=== PATIENT | female | born 1970 | race Caucasian/White ===

== ENCOUNTER 2017-12-03 08:19 | Outpatient (CLI) | payer OTHER | END 2017-12-03 08:20 | disposition home or self-care (01) | LOC: BICMAMMO 08:19 | PROVIDERS: ATTEND Student in an Organized Health Care Education/Training Program | DX: Z12.31 Encounter for screening mammogram for malignant neoplasm of breast (principal); Z80.3 Family history of malignant neoplasm of breast | CPT/HCPCS: 77063; 77067 ==

== ENCOUNTER 2017-12-10 09:45 | Outpatient (CLI) | payer OTHER | END 2017-12-10 09:46 | disposition home or self-care (01) | LOC: BICMAMMO 09:45 | PROVIDERS: ATTEND Student in an Organized Health Care Education/Training Program | DX: N63.20 Unspecified lump in the left breast, unspecified quadrant (principal); N64.89 Other specified disorders of breast; Z80.3 Family history of malignant neoplasm of breast | CPT/HCPCS: G0279 ==

== ENCOUNTER 2018-12-16 08:29 | Outpatient (CLI) | payer OTHER ==
--- NOTE | 2018-12-16 09:10 | MMO ---
Bilateral MAMMO Bilat Screen [facility]. CLINICAL HISTORY: Patient is 48 years old and is seen for screening. The patient has the following family history of breast cancer: sister, at age 44 and paternal aunt. The patient has no personal history of cancer. VIEWS: The views performed were: bilateral craniocaudal with tomosynthesis and bilateral mediolateral oblique with tomosynthesis. FILMS COMPARED: The present examination has been compared to prior imaging studies performed at [facility] on 12/27/2013, 12/03/2017 and 12/10/2017. MAMMOGRAM FINDINGS: The breasts are heterogeneously dense, which could obscure a lesion on mammography. There are no suspicious masses, suspicious calcifications, or new areas of architectural distortion. IMPRESSION: THERE IS NO MAMMOGRAPHIC EVIDENCE OF MALIGNANCY. A ROUTINE FOLLOW-UP MAMMOGRAM IN 1 YEAR IS RECOMMENDED. THE RESULTS OF THIS EXAM WERE SENT TO THE PATIENT. ACR BI-RADS Category 1 - Negative MAMMOGRAPHY NOTE: 1. A negative mammogram report should not delay a biopsy if a dominant of clinically suspicious mass is present. 2. Approximately 10% to 15% of breast cancers are not detected by mammography. 3. Adenosis and dense breasts may obscure an underlying neoplasm.
== END 2018-12-16 08:30 | disposition home or self-care (01) ==
LOC: BICMAMMO 08:29
PROVIDERS: ATTEND Student in an Organized Health Care Education/Training Program
DX: Z12.31 Encounter for screening mammogram for malignant neoplasm of breast (principal); Z80.3 Family history of malignant neoplasm of breast
CPT/HCPCS: 77063; 77067

== ENCOUNTER 2019-07-09 18:41 | Observation (INO) | payer OTHER ==
[~2019-07-09 18:41] MED LIST: Iopamidol-370 76% 500 ML 1 ML ONE
[2019-07-09] MEDS ORDERED: Lorazepam 2 MG/ML VIAL ONE (19:00)
[2019-07-09] MEDS ORDERED: Ondansetron PF 4 MG/2 ML Vial ONE (19:00)
[2019-07-09 19:20] LABS: Mean Corpuscular HGB CONC 34.1 g/dL (32.0-36.0); Mean Corpuscular Hemoglobin 31.2 pg (27.0-31.0); Mean Corpuscular Volume 91.3 fL (78.0-98.0); Mean Platelet Volume 6.7 fL (7.4-10.4); Platelet Count 285 thou/uL (130-400); RBC Distribution Width 11.1 % (11.5-14.5); Red Blood Cell (RBC) Count 4.18 mill/uL (4.20-5.40); White Blood Cell (WBC) Count 11.4 thou/uL (4.8-10.8)
[2019-07-09] MEDS ORDERED: Mag-Al 1200 mg/1200 mg/30 ML UDCUP ONE (19:25)
[2019-07-09] MEDS ORDERED: Pantoprazole 40 MG VIAL ONE (19:25)
[2019-07-09] MEDS ORDERED: Famotidine 20 MG TAB ONE (19:25)
[2019-07-09] MEDS ORDERED: Lidocaine Viscous Sol 2% 15 ml UD Cup ONE (19:25)
[2019-07-09 19:36] LABS: Band 12 % (5-11); Eosinophils 1 % (0-10); Lymphocytes 9 % (21-51); MDiff Complete? YES; Metamyelocyte 1 % (0-0); Monocytes 2 % (0-10); Neutrophil 75 % (42-75); Platelet Morphology Comment Appears Adequate; RBC Morphology Normal
[2019-07-09 19:40] LABS: Anion Gap 12 mmol/L (10-20); BUN (Urea Nitrogen) 13 mg/dL (7.0-18.7); Calc. Creatinine Clearance 0 mL/min (70-130); Calcium 9.3 mg/dL (7.8-10.44); Carbon Dioxide 24 mmol/L (22-29); Chloride 103 mmol/L (98-107); Estimated GFR-MDRD 83; Glucose 147 mg/dL (70-105); Potassium 4.1 mmol/L (3.5-5.1); Sodium 135 mmol/L (136-145)
[2019-07-09 19:41] LABS: ALT (SGPT) 57 U/L (8-55); AST (SGOT) 125 U/L (5-34); Albumin 4.3 g/dL (3.5-5.0); Alkaline Phosphatase 64 U/L (40-110); Bilirubin, Total 0.7 mg/dL (0.2-1.2); CK (CPK) 72 U/L (29-168); Globulin 3.1 g/dL (2.4-3.5); Lipase 16 U/L (8-78); Protein, Total 7.4 g/dL (6.0-8.3)
[2019-07-09 20:01] LABS: Bilirubin Negative (Negative); Blood, Urine Negative (Negative); Clarity Clear (Clear); Glucose, Urine (Dipstick) Normal (Negative); Leukocyte Negative Leu/uL (Negative); Nitrite Negative (Negative); Protein, Urine (Dipstick) Negative (Neg-Trace); Urobilinogen Normal mg/dL (Less than 2)
--- NOTE | 2019-07-09 20:20 | RAD ---
RADIOGRAPH CHEST 1 VIEW: DATE: 07/09/2019 HISTORY: 49-year-old female with chest pain FINDINGS: There is no airspace density, pulmonary edema, or pneumothorax. The lateral costophrenic angles are n ot effaced. Small focal pulmonary scar at the lingula near cardiac apex. IMPRESSION: No acute pulmonary findings.
--- NOTE | 2019-07-09 20:43 | CT ---
CT ABDOMEN WITH CONTRAST CT PELVIS WITH CONTRAST: DATE: 07/09/2019 HISTORY: 49-year-old female with chest pain, epigastric pain,, nausea, elevated liver function tests, and leuk ocytosis. TECHNIQUE: IV injection of iodinated contrast media: Administered Oral contrast media:Not administered FINDINGS: Stomach: Distended with large amount of gas and moderate amount of fluid. Liver: No focal solid mass. No abscess. Diffuse periportal edema. Spleen: No splenomegaly.. Pancreas: No mass or surrounding fat stranding.. Adrenals: No mass.. Kidneys: No hydronephrosis or enhancement abnormalities.. Ureters: No dilation. Bladder: No pathology identified. Abdominal aorta: No aneurysm. Small bowel: No dilation. Duodenum appears slightly squeezed as it passes between the SMA and aorta. Colon: No adjacent fat stranding. Appendix: Despite history of appendectomy, there is a short linear structure apparently arising from cecum which has the appearance of an appendix. No dilation or adjacent fat stranding.. Free air: None. Free fluid: None. Abscess: None IMPRESSION: 1. Gastric distention. Uncertain whether or not there is SMA syndrome causing this. 2. Diffuse periportal edema in the liver.
[2019-07-09] MEDS ORDERED: Fentanyl 100 MCG/2 ML VIAL ONE (21:01)
[2019-07-09] MEDS ORDERED: Senokot S 8.6-50 MG TAB PO PRN (21:34)
[2019-07-09] MEDS ORDERED: Ondansetron PF 4 MG/2 ML Vial IVP PRN (21:34)
[2019-07-09] MEDS ORDERED: Sodium Chloride 0.9% (PF) 10 ML VIAL FS PRN (22:47)
[2019-07-09] MEDS: Sodium Chloride 0.9% 1,000 ML IV SCH (23:05)
[2019-07-09 23:10] VITALS: BMI 31.6
[2019-07-10] MEDS: Fentanyl 100 MCG/2 ML VIAL SLOW IVP PRN ×2 (00:50→10:47)
--- NOTE | 2019-07-10 03:46 | HP ---
CHIEF COMPLAINT: Abdominal pain. HISTORY OF PRESENT ILLNESS: The patient is a 49-year-old female with no significant past medical history, who comes into the hospital with complaints of abdominal pain radiating to her epigastric area and then going to her left shoulder. The patient stated that she has a history of ulcers about 2 or 3 years ago. She states that today she ate some [place] food and she normally gets very significant amount of heartburn from green peppers. She thought that they were in her sauce today. Maybe after couple hours after she had her meal, she started having some epigastric pain going up and all the way to the left shoulder. Initially, she took Tums, which did not really help her pain and the pain intensified to the point that she came into the hospital for further evaluation. The patient denies any fevers, chills, nausea, vomiting, or diarrhea. PAST MEDICAL HISTORY: She has a history of duodenal ulcers in the past. PAST SURGICAL HISTORY: She has had a cholecystectomy. She has had appendectomy. She has had hernia repair. SOCIAL HISTORY: She denies any alcohol use, drug use, or smoking history. She is a full code. FAMILY HISTORY: Father had lung cancer. Mother had diabetes. Father had diabetes also. REVIEW OF SYSTEMS: All negative except for the ones mentioned above in the HPI. LABORATORY RESULTS: As of the following; WBCs of 11.4, hemoglobin of 13.0, hematocrit of 38.2, platelets of 285. Her bands are 12. Chemistry; sodium of 135, potassium of 4.1, BUN of 13, creatinine 0.75. AST is 125, ALT is 57. Her troponins are less than 0.01. Initially, her urine was normal. She actually had a CT of abdomen and pelvis, which indicated gastric distention. Uncertain whether or not this is a SMA syndrome causing this diffuse periportal edema in the liver. PHYSICAL EXAMINATION: VITAL SIGNS: Temperature 97.4, 82, 113/77, 18, and 97% on room air. GENERAL: She is awake, alert, and oriented x3, appears in mild distress. HEENT: Normocephalic, atraumatic. No lymphadenopathy noted. Pupils equal and reactive to light. CV: S1 and S2 present. No murmurs, rubs, or gallops. LUNGS: Clear to auscultation. No rhonchi or wheezes noted. ABDOMEN: Soft. Bowel sounds are present x2. Mild pain upon epigastric area and right upper quadrant. EXTREMITIES: No edema. Pedal pulses are present x2. NEUROVASCULAR: No focal deficits noted. SKIN: No cuts, lesions or bruises noted. ASSESSMENT AND PLAN: The patient is a very pleasant 49-year-old female, who presents to the hospital with complaints of abdominal pain. 1. Abdominal pain. This could be secondary to either possible duodenal ulcer versus possible SMA syndrome. However, it is very rare versus gastroparesis. The patient states that she has lost about 47 pounds in about less than a year by changing her diet. I am not sure this could contribute to possibly having the SMA syndrome. However, she does have a history of duodenal ulcers and she has been taking some ibuprofen on and off for some body aches. I will put on a PPI for now. Keep her n.p.o. after midnight. Start her on IV hydration and consult GI. She was scoped in 2015 by GI. I will also check JEFF and hepatitis panel given her periportal edema. I am not sure what to make out of that. She does have a strong family history of diabetes. I will also check her for hemoglobin A1c. The patient denies that she is diabetic. 2. Mild leukocytosis with bandemia. I will start her on some prophylactic antibiotics. However, I do not think there is any other infectious etiology at this moment. We will continue to monitor her. 3. Mild elevated LFTs. Again, I will check hepatitis panel. If worsens, may possible get right upper quadrant ultrasound since she has some periportal edema. I want to rule out any sort of thrombus, however, I will defer that to GI. 4. Deep venous thrombosis prophylaxis. We will put the patient on some SCDs. Job ID: [id number]
[2019-07-10] MEDS: cefTRIAXone\\ROCEPHIN 1 GM in Sodium Chloride 0.9% 100 ML IVPB SCH (04:05)
[2019-07-10 06:13] LABS: #Lymphocytes 1.1 thou/uL (1.20-3.40); #Monocytes 0.4 thou/uL (0.11-0.59); #Neutrophils 4.6 thou/uL (1.40-6.50); %Basophils 0.2 % (0.0-1.0); %Eosinophils 0.5 % (0.0-10.0); %Lymphocytes 17.4 % (21.0-51.0); Hemoglobin 11.2 g/dL (12.0-16.0); Mean Corpuscular Hemoglobin 31.1 pg (27.0-31.0); Mean Corpuscular Volume 91.3 fL (78.0-98.0); Mean Platelet Volume 6.7 fL (7.4-10.4); Platelet Count 251 thou/uL (130-400); RBC Distribution Width 10.9 % (11.5-14.5); Red Blood Cell (RBC) Count 3.62 mill/uL (4.20-5.40); White Blood Cell (WBC) Count 6.1 thou/uL (4.8-10.8)
[2019-07-10 06:14] LABS: Hemoglobin A1c 4.9 % (4.0-6.0)
[2019-07-10 06:30] LABS: ALT (SGPT) 158 U/L (8-55); AST (SGOT) 161 U/L (5-34); Albumin 3.7 g/dL (3.5-5.0); Alkaline Phosphatase 76 U/L (40-110); Anion Gap 6 mmol/L (10-20); BUN (Urea Nitrogen) 8 mg/dL (7.0-18.7); Bilirubin, Total 0.5 mg/dL (0.2-1.2); Calc. Creatinine Clearance 141 mL/min (70-130); Calcium 8.4 mg/dL (7.8-10.44); Carbon Dioxide 29 mmol/L (22-29); Chloride 106 mmol/L (98-107); Estimated GFR-MDRD Greater than 90; Globulin 2.4 g/dL (2.4-3.5); Glucose 96 mg/dL (70-105); Potassium 3.5 mmol/L (3.5-5.1); Protein, Total 6.1 g/dL (6.0-8.3); Sodium 137 mmol/L (136-145)
[2019-07-10 06:50] LABS: HBCM Index 0.11 S/CO (0-0.79); Hep A IgM AB Non-Reactive (NonReactive); Hep B Surf Ag Non-Reactive S/CO (NonReactive); Hep C IgG Ab Non-Reactive (NonReactive); Hepatitis B Core IgM Abs Non-Reactive (NonReactive)
[2019-07-10] MEDS: Enoxaparin Sodium 40 MG/0.4 ML SYRINGE SC SCH (07:57)
[2019-07-10] MEDS: Pantoprazole 40 MG VIAL IVP SCH ×2 (07:58→20:10)
[2019-07-10] MEDS: Sodium Chloride 0.9% 1,000 ML IV SCH ×3 (08:05→20:11)
[2019-07-10] MEDS: Loratadine 10 MG TAB PO SCH (08:08)
--- NOTE | 2019-07-10 12:58 | PDOC.HOSPP ---
- Subjective Encounter Date: 07/10/19 (f/u abd pain) Encounter Time: 12:57 Subjective: Pt reports pain has been increasing this morning - 1 dose of fentanyl today. Reports 4 episodes diarrhea yesterday, normal bm 2 days ago and no bm today. Denies any new sx today. - Objective Vital Signs & Weight: Vital Signs (12 hours) Temp Pulse Resp BP Pulse Ox 07/10/19 12:00 97.6 F 66 16 101/64 99 07/10/19 07:47 98.2 F 68 16 109/74 99 07/10/19 04:00 98 F 70 18 92/60 98 Weight Weight 179 lb I&O: 07/09/19 07/10/19 07/11/19 06:59 06:59 06:59 Intake Total 1600 Balance 1600 Result Diagrams: 07/10/19 05:44 07/10/19 05:44 Hospitalist ROS - Review of Systems Cardiovascular: denies: chest pain, palpitations, orthopnea, paroxysmal noc. dyspnea, edema, light headedness, other Genitourinary: denies: dysuria, frequency, incontinence, hematuria, retention, other - Medication Medications: Active Medications Generic Name Dose Route Start Last Admin Trade Name Freq PRN Reason Stop Dose Admin Enoxaparin Sodium 40 mg 07/10/19 09:00 07/10/19 07:57 Lovenox SC 40 mg 0900 LIZ Administration Fentanyl 25 mcg 07/09/19 22:59 07/10/19 10:47 Sublimaze SLOW IVP 25 mcg Q2H PRN Administration Fever/Mild Pain Sodium Chloride 1,000 mls @ 50 mls/hr 07/09/19 21:45 07/10/19 08:05 Normal Saline 0.9% IV 1,000 mls .Q20H LIZ Administration Ceftriaxone Sodium 1 gm/ 100 mls @ 200 mls/hr 07/10/19 04:00 07/10/19 04:05 Sodium Chloride IVPB 07/12/19 04:29 100 mls Q24HR LIZ Administration Loratadine 10 mg 07/10/19 09:00 07/10/19 08:08 Claritin PO Not Given DAILY LIZ Pantoprazole Sodium 40 mg 07/10/19 09:00 07/10/19 07:58 Protonix IVP 40 mg Q12HR LIZ Administration - Exam General Appearance: NAD Neck: supple Heart: RRR, no murmur Respiratory: CTAB, no wheezes, no rales, no ronchi Gastrointestinal: soft, non-tender, non-distended, normal bowel sounds Extremities: no cyanosis, no clubbing, no edema Musculoskeletal: normal tone Psychiatric: normal affect, A&O x 3 Hosp A/P (1) Abdominal pain Code(s): R10.9 - UNSPECIFIED ABDOMINAL PAIN Status: Acute Qualifiers: Abdominal location: right upper quadrant Qualified Code(s): R10.11 - Right upper quadrant pain (2) Leukocytosis Code(s): D72.829 - ELEVATED WHITE BLOOD CELL COUNT, UNSPECIFIED Status: Resolved (3) Elevated liver function tests Code(s): R94.5 - ABNORMAL RESULTS OF LIVER FUNCTION STUDIES Status: Acute - Plan Abd pain with abnormal CT and diarreha yesterday - GI consult placed - continue IV PPI bid - culture/stool studies including c diff - ultrasound abd ordered - continue managing pain Elevated lft's - neg hepatitis panel Leukocytosis resolved - has received 1 dose of rocephin without a focus of infection. Will continue for another 24 hours dvt prophy - ambulatory gi prophy - BID PPI code status full reviewed plan of care with patient/family, no questions or further needs at end of eval
--- NOTE | 2019-07-10 14:24 | ULT ---
Sonogram abdomen complete HISTORY: Abnormal CT scan. Periportal edema. Abdominal pain. COMPARISON: CT abdomen 07/09/2019. FINDINGS: Gallbladder is surgically absent. Common duct is 0.5 cm. Liver has normal appearance withou t focal mass or intrahepatic biliary dilatation. Normal echotexture without evidence of periportal edema on this exam. No free fluid. The spleen, kidneys, and visualized portions of abdominal aorta, IVC, and pancreas are unremarkable. IMPRESSION: Status post cholecystectomy. No evidence of biliary obstruction. Normal appearance of the liver. No abnormalities are demonstrated.
[2019-07-10] MEDS: Acetaminophen 325 MG TAB PO PRN (21:10)
--- NOTE | 2019-07-11 02:33 | CON ---
DATE OF CONSULTATION: 07/10/2019 CHIEF COMPLAINT: Abdominal pain. HISTORY OF PRESENT ILLNESS: Ms. Ramirez is a 49-year-old woman, who presented to the emergency room yesterday with acute onset of epigastric burning severe pain that started yesterday afternoon. She had four runny bowel movements that came along at the time of onset of the pain between 2:00 p.m. and 5:00 p.m. yesterday. She has had no bowel movement since then. She has had no nausea or vomiting. She has had no overt bleeding with stools. She has had no chest pain or shortness of breath. She has lost 47 pounds over the last year after she changed her diet after her had myocardial infarction last year. She has not had problems with heartburn regularly. She did try taking Tums for the pain yesterday that really did not help. She had recurrence of severity of the pain this morning and she did receive a dose of IV opioid for that. This afternoon, the pain has just been more of a mild constant ache more toward the right upper quadrant. PAST MEDICAL HISTORY: Peptic ulcer. Gastric biopsy in March of 2015, was negative for Helicobacter pylori. PAST SURGICAL HISTORY: Robotic cholecystectomy and subsequent incisional hernia repair, appendectomy. HABITS: No alcohol, tobacco, or drugs. FAMILY HISTORY: Negative for GI malignancy. ALLERGIES: MORPHINE. MEDICATIONS: Prior to admission, Xyzal. She does take ibuprofen a couple tablets 2 or 3 times per week. REVIEW OF SYSTEMS: Negative x10 systems reviewed, except as stated in the history of present illness. PHYSICAL EXAMINATION: VITAL SIGNS: Temperature 98.4, pulse 70, blood pressure 100/67. GENERAL: She is in no acute distress. Alert and oriented x3. HEENT: Eyes have no scleral icterus. Oropharynx is clear without lesions. No cervical or supraclavicular lymphadenopathy. LUNGS: Clear to auscultation bilaterally. HEART: Regular rate and rhythm without murmur. ABDOMEN: Soft, nontender, and nondistended. Bowel sounds are present. EXTREMITIES: No lower extremity edema. Cranial nerves are grossly intact. LABORATORY DATA: White blood cell count is 6.1 today, down from 11.4 yesterday. Hemoglobin is 11.2 today, down from 13.0 yesterday. Platelets 251. Creatinine 0.63, bilirubin 0.5, AST 161, ALT 158, alkaline phosphatase 76, albumin 3.7, TSH 0.8, lipase 16. Acute viral hepatitis panel is negative. She had ultrasound of the liver today that showed a [address] bile duct. CT scan of the abdomen and pelvis yesterday showed gastric distension. The passage of the duodenum between aorta and the SMA was noted, and question of SMA syndrome was raised. Periportal edema was noted around the liver. IMPRESSION: 1. Epigastric severe abdominal pain. She has a history of peptic ulcer and we will need to rule this out. She was negative for Helicobacter pylori by biopsy in 2015. She could have acute viral gastritis associated with gastric distention and the diarrhea that occurred with onset of her pain. She could have SMA syndrome given the 47 pounds weight loss of the last year. 2. Abnormal liver function test. Her acute viral hepatitis panel is negative. She did have some periportal edema noted in the liver. We will follow the trend of her LFTs. RECOMMENDATIONS: 1. EGD tomorrow. We will actually plan for enteroscopy such that we can reach the more distal duodenum to evaluate for obvious SMA syndrome. 2. Recheck trend of her liver tests. 3. Proton pump inhibitor. 4. She did have an elevated white blood cell count on admission and was started on ceftriaxone. Her urine culture was positive for E coli. Job ID: [id number]
[2019-07-11] MEDS: cefTRIAXone\\ROCEPHIN 1 GM in Sodium Chloride 0.9% 100 ML IVPB SCH (03:27)
[2019-07-11 05:55] LABS: #Eosinphils 0.1 thou/uL (0.0-0.7); #Lymphocytes 1.6 thou/uL (1.20-3.40); #Monocytes 0.3 thou/uL (0.11-0.59); #Neutrophils 1.6 thou/uL (1.40-6.50); %Basophils 0.8 % (0.0-1.0); %Eosinophils 2.2 % (0.0-10.0); %Lymphocytes 44.7 % (21.0-51.0); %Monocytes 6.8 % (0.0-10.0); %Neutrophils 45.4 % (42.0-75.0); Hemoglobin 11.3 g/dL (12.0-16.0); Mean Corpuscular HGB CONC 33.3 g/dL (32.0-36.0); Mean Corpuscular Hemoglobin 30.5 pg (27.0-31.0); Mean Corpuscular Volume 91.7 fL (78.0-98.0); Mean Platelet Volume 6.3 fL (7.4-10.4); Platelet Count 246 thou/uL (130-400); Red Blood Cell (RBC) Count 3.69 mill/uL (4.20-5.40); White Blood Cell (WBC) Count 3.6 thou/uL (4.8-10.8)
[2019-07-11 06:15] LABS: ALT (SGPT) 99 U/L (8-55); AST (SGOT) 57 U/L (5-34); Albumin 3.5 g/dL (3.5-5.0); Alkaline Phosphatase 66 U/L (40-110); Anion Gap 9 mmol/L (10-20); BUN (Urea Nitrogen) 8 mg/dL (7.0-18.7); Bilirubin, Total 0.4 mg/dL (0.2-1.2); Calc. Creatinine Clearance 131 mL/min (70-130); Calcium 8.2 mg/dL (7.8-10.44); Carbon Dioxide 27 mmol/L (22-29); Chloride 107 mmol/L (98-107); Estimated GFR-MDRD Greater than 90; Globulin 2.6 g/dL (2.4-3.5); Glucose 89 mg/dL (70-105); Potassium 3.7 mmol/L (3.5-5.1); Protein, Total 6.1 g/dL (6.0-8.3); Sodium 139 mmol/L (136-145)
[2019-07-11] MEDS: Loratadine 10 MG TAB PO SCH (06:52)
[2019-07-11] MEDS: Enoxaparin Sodium 40 MG/0.4 ML SYRINGE SC SCH (07:29)
[2019-07-11 07:36] VITALS: BP 99/63; TEMP 97.5
[2019-07-11] MEDS: Pantoprazole 40 MG VIAL IVP SCH (08:16)
[2019-07-11] MEDS: Sodium Chloride 0.9% 1,000 ML IV SCH (08:19)
[2019-07-11] MEDS ORDERED: PROPOFOL 200 MG/20 ML VIAL ONE (12:00)
[2019-07-11] MEDS ORDERED: Lidocaine 1% PF 5 ML VIAL ONE (12:00)
[2019-07-11] MEDS: Acetaminophen 325 MG TAB PO PRN (13:32)
--- NOTE | 2019-07-12 11:41 | DIS ---
DATE OF ADMISSION: 07/09/2019 DATE OF DISCHARGE: 07/11/2019 CONSULTANTS: GI, Dr. Dolan and Dr. Vital. PROCEDURES PERFORMED: EGD performed today and unremarkable. MEDICATIONS: Reconciled at discharge. New medication: 1. Zofran 4 mg ODT q.6 hours p.r.n. nausea, vomiting; prescription for 20 tablets, no refills. 2. Tylenol 650 mg every 6 hours as needed for pain. Medications to continue is Xyzal 5 mg daily as needed for allergies. FINAL DIAGNOSES: 1. Abdominal pain, likely acute viral gastroenteritis. 2. Elevated liver function tests. 3. Leukocytosis, resolved. 4. Obesity. HISTORY OF PRESENT ILLNESS: Ms. Ramirez is a 49-year-old female who presented to the emergency room with severe abdominal pain in the epigastric area that radiated to the left shoulder. She has a history of ulcers, the pain did not respond to [id number] medications. She also complains of 4 episodes of diarrhea prior to arrival. HOSPITAL COURSE: The patient was kept n.p.o., IV fluid hydration, pain managed until evaluated by Gastroenterology. She was started on a clear liquid diet yesterday and kept n.p.o. today for EGD. The EGD was unremarkable, negative evaluation for SMA syndrome, which was one of the possibilities on CT scan at admission. The patient did have some nausea after eating post procedure, and some minor pain. This was reviewed with Dr. Vital who feels that she can be discharged to home. We will manage the nausea, bland diet that is easy to digest today. Discussed pain medication at home and patient declines any prescriptions. She will take Tylenol as needed. It is recommended she follow up with her primary care provider within a week to review this hospitalization and address any other needs. The patient also will need a followup liver function test in about a month as the LFTs are elevated. The patient overall doing well, improved compared to admission, and she does meet criteria for discharge to home. The patient with an elevated white blood cell count on admission of 11.4. She was covered empirically with Rocephin, and her white blood cell count the next day was 6.1 and today is 3.6. She has not demonstrated any focal signs of infection to warrant continuing antibiotic therapy and this was discontinued. The patient has also not had any further diarrhea. Stool studies were ordered, however, not collected. PHYSICAL EXAMINATION: VITAL SIGNS: Temp 97.5, pulse 61, respirations 16, sats 98% on room air, blood pressure 99/63. GENERAL: Awake, alert, responsive, in no apparent distress. LUNGS: Clear to auscultation bilateral. HEART: Normal S1, S2. Regular rate and rhythm. No significant murmur. ABDOMEN: Soft with present bowel sounds. Nontender, nondistended. EXTREMITIES: No clubbing, cyanosis, or edema. PITTS FINDINGS AND TEST RESULTS: CBC on admission; 11.4, 13, 38.2, 285, and on day of discharge, 3.6, 11.3, 33.9, 246. Renal panel today; 139, 3.7, 107, 27, 8, 0.68, 89. T bilirubin 0.4, AST 57, ALT 99, alkaline phosphatase 66, total protein 6.1, albumin 3.5. TSH 0.866. Peak liver function tests, AST 161, ALT 158 yesterday. Urinalysis negative. Hepatitis panel negative. Pending labs are JEFF and Giardia antibody. Abdominal ultrasound, negative for biliary obstruction, normal appearing liver and status post cholecystectomy. Abdomen and pelvis CT performed on July 09 shows gastric distention, uncertain whether or not there is an SMA syndrome causing this, and diffuse periportal edema in the liver. Chest x-ray, July 09, no acute pulmonary findings. DIET: Diet is bland today and then as tolerated. ACTIVITY: As tolerated. The patient does her own housekeeping business and I advised her to go slow and be willing to either decrease her workload tomorrow if she is having any symptoms that warrant resting. FOLLOWUP: 1. Follow up with Dr. Mcnulty within a week to review this hospitalization, repeat the liver function tests in about a month and address any other health needs. 2. Follow up with Dr. Vital or Dr. Dolan as needed. Reviewed with patient and her this hospitalization, the followup, including the repeat LFTs that are needed, and to seek care precautions. No questions or further needs at the end of evaluation. 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 Job ID: [id number] MTDD
--- NOTE | 2019-07-13 14:32 | OP ---
DATE OF PROCEDURE: 07/11/2019 PROCEDURE PERFORMED: Esophagogastroduodenoscopy (diagnostic). INDICATIONS FOR PROCEDURE: Abnormal GI imaging, showing possible SMA syndrome; abdominal pain; nausea and vomiting. DESCRIPTION OF PROCEDURE: After the risks and benefits of the procedure were explained to the patient including risks of bleeding, infection, perforation, reactions to anesthesia, aspiration, and/or pain, informed consent was obtained. The patient was then taken to the endoscopy suite and placed in the left lateral decubitus position. Once in proper position, deep sedation was administered via propofol and anesthesia support. Once adequate sedation was achieved, the standard gastroscope was introduced into the mouth with intubation of the esophagus, stomach, and the proximal small intestines with the findings listed below. The patient tolerated the procedure well with no immediate perioperative complications. Upon conclusion of the procedure, all equipment was removed from the patient and she was transferred to PACU in satisfactory condition. FINDINGS: Esophagus: Normal-appearing mucosa was seen in the proximal, mid, and distal esophagus. There was no evidence of erosions, ulcerations, mass, lesions, or active/recent bleeding. Stomach: Normal-appearing mucosa was seen in the gastric cardia, fundus, body, greater curvature, antrum, and incisura. There was no evidence of erosions, ulcerations, mass, lesions, or active/recent bleeding. Duodenum: Normal-appearing mucosa was seen in both the duodenal bulb and second portion of the duodenum. There was no evidence of luminal narrowing or stricture formation in the second portion of the duodenum to indicate possible SMA syndrome. The gastroscope was advanced as far as I was able with reaching the third portion of the duodenum, and again no evidence of luminal narrowing or stricture was seen. There was also no evidence of erosions, ulcerations, mass, lesions, or active/recent bleeding. IMPRESSION: 1. Normal upper endoscopy. 2. No endoscopic evidence of superior mesenteric artery syndrome. RECOMMENDATIONS: 1. Would continue aggressive antiemetic support in light of the patient's abdominal pain, nausea, and vomiting. 2. Pain control per primary team. 3. Advance diet as tolerated. 4. Given the relatively benign findings on examination today, the patient could potentially be discharged to home with followup in the outpatient clinic once stable. We will sign off at this time. Please call with any questions. Job ID: [id number]
[2019-07-13 14:34] LABS: ANA Symphony (Qualitative) Negative (Negative); ANA Symphony (Quantitative) 0.1 Ratio (< 0.7 Negative); dsDNA IgG Antibody 0.6 IU/mL (<10 Negative)
== END 2019-07-11 15:11 | disposition home or self-care (01) ==
LOC: ERS 18:41 → T4-A 22:42
PROVIDERS: ADMIT Internal Medicine; ATTEND Internal Medicine
PROC: 0DJ08ZZ Inspection of Upper Intestinal Tract, Via Natural or Artificial Opening Endoscopic (ICD-10-PCS; principal; 2019-07-11)
DX: R10.13 Epigastric pain (principal); R11.2 Nausea with vomiting, unspecified; R94.5 Abnormal results of liver function studies; D72.825 Bandemia; E66.9 Obesity, unspecified; Z68.31 Body mass index [BMI] 31.0-31.9, adult; Z79.899 Other long term (current) drug therapy; Z88.5 Allergy status to narcotic agent; Z87.11 Personal history of peptic ulcer disease; Z87.19 Personal history of other diseases of the digestive system
CPT/HCPCS: 36415; 71045; 74177; 80053; 80074; 81003; 82550; 83036; 83690; 84443; 84484; 85025; 86038; 86225; 86674; 93005; 93975; 96361; 96365; 96366; 96367; 96372; 96375; 96376; C9113; G0378; J0696; J1650; J2001; J2060; J2405; J2704; J3010; J3490; Q9967

== ENCOUNTER 2020-01-30 08:02 | Outpatient (CLI) | payer OTHER ==
--- NOTE | 2020-01-30 08:30 | MMO ---
Bilateral MAMMO Bilat Screen [facility]. CLINICAL HISTORY: Patient is 49 years old and is seen for screening. The patient has the following family history of breast cancer: sister, at age 44 and paternal aunt. The patient has no personal history of cancer. VIEWS: The views performed were: bilateral craniocaudal with tomosynthesis and bilateral mediolateral oblique with tomosynthesis. FILMS COMPARED: The present examination has been compared to prior imaging studies performed at [facility] on 12/27/2013, 12/03/2017, 12/10/2017 and 12/16/2018. This study has been interpreted with the assistance of computer-aided detection. MAMMOGRAM FINDINGS: The breasts are heterogeneously dense, which could obscure a lesion on mammography. There are no suspicious masses, suspicious calcifications, or new areas of architectural distortion. IMPRESSION: THERE IS NO MAMMOGRAPHIC EVIDENCE OF MALIGNANCY. A ROUTINE FOLLOW-UP MAMMOGRAM IN 1 YEAR IS RECOMMENDED. THE RESULTS OF THIS EXAM WERE SENT TO THE PATIENT. ACR BI-RADS Category 1 - Negative MAMMOGRAPHY NOTE: 1. A negative mammogram report should not delay a biopsy if a dominant of clinically suspicious mass is present. 2. Approximately 10% to 15% of breast cancers are not detected by mammography. 3. Adenosis and dense breasts may obscure an underlying neoplasm. Reported by: DAVIN DAWKINS MD Electonically Signed: [id number]
== END 2020-01-30 08:03 | disposition home or self-care (01) ==
LOC: BICMAMMO 08:02
PROVIDERS: ATTEND Student in an Organized Health Care Education/Training Program
DX: Z12.31 Encounter for screening mammogram for malignant neoplasm of breast (principal); Z80.3 Family history of malignant neoplasm of breast
CPT/HCPCS: 77063; 77067

== ENCOUNTER 2020-02-16 05:37 | Outpatient (CLI) | payer OTHER ==
[2020-02-16 17:01] LABS: BHCG - Serum Negative (NEGATIVE); Pregs Control Background? CLEAR/WHITE (CLR/WHITE); Pregs Control Bar Appear? YES (CONTROL BAR)
[2020-02-17 12:33] LABS: SARS-CoV-2 MS2 Positive; SARS-CoV-2 N Gene Negative; SARS-CoV-2 S Gene Negative; SARS-CoV-2 orf1ab Negative
== END 2020-02-16 05:38 | disposition home or self-care (01) ==
LOC: LABBT 05:37
PROVIDERS: ATTEND Otolaryngology Plastic Surgery within the Head & Neck
DX: Z01.812 Encounter for preprocedural laboratory examination (principal); Z11.59 Encounter for screening for other viral diseases; J32.9 Chronic sinusitis, unspecified; R51 Headache; J30.9 Allergic rhinitis, unspecified; J34.3 Hypertrophy of nasal turbinates; R68.89 Other general symptoms and signs
CPT/HCPCS: 84703; 85014; 87635; U0003

== ENCOUNTER 2020-02-21 07:27 | Day surgery (SDC) | payer OTHER ==
[2020-02-14 09:10] VITALS: BMI 32.4
[2020-02-21] MEDS ORDERED: AFRIN NASAL MIST 15 ML BOT ONE ×3 (09:11→10:51)
[2020-02-21] MEDS ORDERED: Lidocaine 1% w/Epinephrine 1:100K 20 ML VIAL ONE (09:45)
[2020-02-21] MEDS ORDERED: EPINEPHrine 1 MG/ML AMP ONE (09:47)
[2020-02-21] MEDS ORDERED: Fentanyl 100 MCG/2 ML VIAL ONE ×2 (09:52→11:15)
[2020-02-21] MEDS ORDERED: Midazolam HCl 2 mg/2 ml Vial ONE (09:52)
[2020-02-21] MEDS ORDERED: Lidocaine 1% PF 5 ML VIAL ONE (11:23)
[2020-02-21] MEDS ORDERED: Glycopyrrolate 0.2 MG/ML 5 ML SYRINGE ONE (11:23)
[2020-02-21] MEDS ORDERED: Dexamethasone 20 MG/5 ML VIAL ONE (11:23)
[2020-02-21] MEDS ORDERED: Ondansetron PF 4 MG/2 ML Vial ONE (11:23)
[2020-02-21] MEDS ORDERED: PROPOFOL 200 MG/20 ML VIAL ONE (11:23)
[2020-02-21] MEDS ORDERED: Rocuronium Bromide 10 MG/ML (10ML VIAL) ONE (11:23)
--- NOTE | 2020-02-22 09:08 | OP ---
DATE OF PROCEDURE: 02/21/2020 PREOPERATIVE DIAGNOSES: 1. Chronic rhinosinusitis. 2. Bilateral inferior turbinate hypertrophy. 3. Nasal obstruction. 4. Headaches. POSTOPERATIVE DIAGNOSES: 1. Chronic rhinosinusitis. 2. Bilateral inferior turbinate hypertrophy. 3. Nasal obstruction. 4. Headaches. PROCEDURES PERFORMED: 1. Bilateral endoscopic sinus surgery, total ethmoidectomies with sphenoidotomies including removal of tissue. 2. Bilateral endoscopic sinus surgery, maxillary antrostomies. 3. Bilateral endoscopic sinus surgery, frontal sinus exploration. 4. Bilateral inferior turbinate submucosal resection. 5. [employer] stereotactic image-guided surgery. ESTIMATED BLOOD LOSS: 20 mL. COMPLICATIONS: None. ANESTHESIA: GETA. DESCRIPTION OF PROCEDURE: The patient was taken to the operating room and placed supine on the table. General endotracheal anesthesia was obtained by the Anesthesia Staff. Tube was secured to the left lower lip, and the patient was placed in the beach chair position. Following this, the [email or web address] image-guided system was set up and calibrated and all further instrumentation used was under stereotactic guidance. Following this, 1% lidocaine with 1:100,000 epinephrine were injected into the middle turbinates and lateral nasal wall bilaterally. Following this, the 0-degree endoscope was used to visualize the middle turbinate and the middle turbinate was medially fractured using a [place] elevator. Following this, the uncinate process was identified and was examined. The uncinate process was noted to be inflamed and laterally displaced bilaterally. Following this, a ball-ended probe was used to anteriorly fracture the uncinate process bilaterally. Following this, the 0-degree microdebrider and the up-biting Blakesley forceps were used to remove the uncinate process bilaterally. Following this, the natural maxillary sinus ostia was identified with the 0-degree endoscope and the ball-ended probe. The natural maxillary ostia were then widened using a 40-degree microdebrider and the straight Blakesley forceps bilaterally. Following this, the ethmoidal bulla was identified bilaterally. A 0-degree microdebrider was used to puncture the ethmoidal bulla on its medial and inferior aspect bilaterally. Following this, the 0-degree microdebrider and the up-biting Blakesley forceps were used to remove the ethmoidal bulla. Following this, the grand lamella was identified posterior to this area and was punctured using the 0-degree microdebrider bilaterally. Following this, the ethmoidal cells were opened from the posterior to the anterior using the 0-degree microdebrider, the 40-degree microdebrider and the up-biting Blakesley forceps bilaterally. Following this, the 45-degree endoscope and the 40-degree microdebrider blade were used to further remove the anterior ethmoidal cells to the level of the frontal sinus recess bilaterally. Following this, a 0-degree endoscope was then advanced through the previous ethmoidectomies and the anterior wall of the sphenoid sinus was identified using the 0-degree microdebrider. The sphenoid sinus was punctured bilaterally, and the sphenoid sinus ostia were then widened in a medial and inferior direction using the microdebrider blade. Following this, 45-degree endoscope was used to visualize the frontal sinus recess and frontal sinus ostia. The 45-degree endoscope along with the 40-degree microdebrider blade under stereotactic guidance was used to widen the frontal sinus ostia bilaterally. Following this, the 45-degree endoscope and the 40-degree microdebrider blade under stereotactic guidance were used to open the large Carlita cells present within the maxillary ethmoidal sinuses bilaterally. The large russ bullosa deformity of the left middle turbinate was then incised vertically using a sickle knife, and the lateral wall of the middle turbinate russ bullosas were resected using the 0-degree microdebrider bilaterally. Following this, the inferior turbinates were punctured on the anterior inferior aspect and submucosal resection was performed of the anterior inferior aspect of the inferior turbinates bilaterally. Following this, nasal cavity was irrigated and NasoPore packing was placed within the middle meatus bilaterally. The patient tolerated the procedure well. Job ID: [id number]
== END 2020-02-21 13:20 | disposition home or self-care (01) ==
LOC: SDC 07:27
PROVIDERS: ATTEND Otolaryngology Plastic Surgery within the Head & Neck
PROC: 09BU8ZZ Excision of Right Ethmoid Sinus, Via Natural or Artificial Opening Endoscopic (ICD-10-PCS; principal; 2020-02-21)
PROC: 09BT8ZZ Excision of Left Frontal Sinus, Via Natural or Artificial Opening Endoscopic (ICD-10-PCS; principal; 2020-02-21)
PROC: 099R8ZZ Drainage of Left Maxillary Sinus, Via Natural or Artificial Opening Endoscopic (ICD-10-PCS; principal; 2020-02-21)
PROC: 09BS8ZZ Excision of Right Frontal Sinus, Via Natural or Artificial Opening Endoscopic (ICD-10-PCS; principal; 2020-02-21)
PROC: 8E09XBZ Computer Assisted Procedure of Head and Neck Region (ICD-10-PCS; principal; 2020-02-21)
PROC: 09BL8ZZ Excision of Nasal Turbinate, Via Natural or Artificial Opening Endoscopic (ICD-10-PCS; principal; 2020-02-21)
PROC: 099Q8ZZ Drainage of Right Maxillary Sinus, Via Natural or Artificial Opening Endoscopic (ICD-10-PCS; principal; 2020-02-21)
PROC: 099W8ZZ Drainage of Right Sphenoid Sinus, Via Natural or Artificial Opening Endoscopic (ICD-10-PCS; principal; 2020-02-21)
PROC: 09BV8ZZ Excision of Left Ethmoid Sinus, Via Natural or Artificial Opening Endoscopic (ICD-10-PCS; principal; 2020-02-21)
PROC: 099X8ZZ Drainage of Left Sphenoid Sinus, Via Natural or Artificial Opening Endoscopic (ICD-10-PCS; principal; 2020-02-21)
DX: J32.9 Chronic sinusitis, unspecified (principal); J30.9 Allergic rhinitis, unspecified; J34.3 Hypertrophy of nasal turbinates; J34.89 Other specified disorders of nose and nasal sinuses; Z88.5 Allergy status to narcotic agent; Z79.899 Other long term (current) drug therapy
CPT/HCPCS: J0171; J1100; J2250; J2405; J2704; J3010

== ENCOUNTER 2022-07-30 08:00 | Outpatient (CLI) | payer BC | END 2022-07-30 08:01 | disposition home or self-care (01) | LOC: BICCT 08:00 | PROVIDERS: ATTEND Surgery | DX: K43.2 Incisional hernia without obstruction or gangrene (principal); M62.08 Separation of muscle (nontraumatic), other site | CPT/HCPCS: 74177 ==

== ENCOUNTER 2022-08-04 08:55 | Outpatient (CLI) | payer BC ==
[2022-08-04 10:22] LABS: #Eosinphils 0.1 10x3/uL (0.0-0.5); #Monocytes 0.4 10x3/uL (0.0-1.1); #Neutrophils 2.4 10x3/uL (1.5-8.4); %Basophils 0.9 % (0.0-2.0); %Eosinophils 2.2 % (0.0-6.0); %Lymphocytes 35.4 % (18.0-47.0); %Monocytes 7.8 % (0.0-10.0); %Neutrophils 53.7 % (40.0-75.0); Hemoglobin 13.1 g/dL (12.0-15.5); Mean Corpuscular HGB CONC 34.4 g/dL (32.0-36.0); Mean Corpuscular Hemoglobin 30.3 pg (27.0-33.0); Mean Corpuscular Volume 88.2 fl (81.6-98.3); Mean Platelet Volume 9.5 fl (7.4-10.4); Platelet Count 303 10x3/uL (150-450); RBC Distribution Width 11.7 % (11.5-14.5); Red Blood Cell (RBC) Count 4.32 10x6/uL (3.90-5.03); White Blood Cell (WBC) Count 4.5 10x3/uL (3.5-10.5)
[2022-08-04 10:35] LABS: Anion Gap 15 mmol/L (10-20); BUN (Urea Nitrogen) 9 mg/dL (7.0-18.7); Calc. Creatinine Clearance 0 mL/min (70-130); Calcium 9.9 mg/dL (7.8-10.44); Carbon Dioxide 26 mmol/L (22-29); Chloride 106 mmol/L (98-107); Estimated GFR 100; Glucose 78 mg/dL (70-105); Potassium 4.4 mmol/L (3.5-5.1); Sodium 143 mmol/L (136-145)
== END 2022-08-04 08:56 | disposition home or self-care (01) ==
LOC: LABBT 08:55
PROVIDERS: ATTEND Surgery
DX: Z01.812 Encounter for preprocedural laboratory examination (principal); K43.2 Incisional hernia without obstruction or gangrene
CPT/HCPCS: 80048; 85025